=== PATIENT | male | born 1990 | race Two or more races ===

== ENCOUNTER 2017-02-02 21:28 | Emergency (ER) | payer SELFPAY ==
[~2017-02-02] VITALS: Ht 160 cm; Wt 69.9 kg
--- NOTE | 2017-02-02 21:32 | NUR ---
PT KYE FROM HOME TO ER BED . C/O MID EPIGASTRIC PAIN W/ N/V SINCE YESTERDAY AFTER EATING SPICY FOOD. NO VOMITING TODAY. GOWNED AND PLACED ON MONITOR. STABLE VITALS AWAITING MD JOSE.
--- NOTE | 2017-02-02 21:43 | NUR ---
[employer] AT BEDSIDE FOR EVAL.
--- NOTE | 2017-02-02 21:58 | NUR ---
Patient discharged to home in stable condition. Written and verbal after care instructions given. Patient and Family verbalizes understanding of instruction.
[2017-02-02 21:59] VITALS: BP 105/70
== END 2017-02-02 22:00 | disposition home or self-care (01) ==
LOC: ER 21:31
DX: R10.13 Epigastric pain (principal); F20.9 Schizophrenia, unspecified; I10 Essential (primary) hypertension
CPT/HCPCS: 99283; A4606; Z7610